=== PATIENT | male | born 1960 | race Two or more races ===

== ENCOUNTER → 2019-01-08 | Outpatient (CLI) | payer MEDICARE, MEDICAID ==
[~2019-01-08] MED LIST: INSU100I28 SQ
== END | disposition home or self-care (01) ==
LOC: CARD 09:09
PROVIDERS: ATTEND Psychiatry & Neurology Neurology
DX: I69.398 Other sequelae of cerebral infarction (principal)

== ENCOUNTER 2019-01-10 13:11 | Emergency (ER) | payer MEDICARE, MEDICAID ==
[~2019-01-10] VITALS: Ht 180.3 cm; Wt 118.0 kg
[2019-01-10] MEDS ORDERED: INSU100I28 SQ (13:19)
[2019-01-10 15:02] LABS: CLARITY URINE CLEAR (CLEAR); COLOR URINE YELLOW (YELLOW); KETONES URINE NEGATIVE (NEGATIVE); LEUKOCYTE ESTERASE URINE NEGATIVE (NEGATIVE); NITRITE URINE NEGATIVE (NEGATIVE); OCCULT BLOOD URINE 1+ (NEGATIVE); PROTEIN URINE 3+ (NEGATIVE); SPECIFIC GRAVITY URINE 1.011 (1.005-1.030); UROBILINOGEN URINE 0.2 E.U./dL (0.2-1.0)
[2019-01-10 15:31] LABS: BASOPHILS % 0.8 % (0.0-2.0); EOSINOPHILS % 2.8 % (0.0-5.0); HEMATOCRIT. 38.9 % (42.0-52.0); HEMOGLOBIN. 13.2 g/dL (14.0-18.0); LYMPHOCYTES % 25.7 % (20.0-50.0); MEAN CORPUSCULAR HEMOGLOBIN 29.9 pg (28.0-32.0); MEAN CORPUSCULAR VOLUME 88.5 fL (80.0-94.0); MEAN PLATELET VOLUME 9.2 fl (7.4-10.4); MONOCYTES % 6.9 % (2.0-8.0); NEUTROPHILS % 63.8 % (40.0-76.0); PLATELET 179 x1000/uL (130-400); RED CELL DISTRIBUTION WIDTH 13.9 % (11.6-14.6)
[2019-01-10 15:35] LABS: CHLORIDE 108 mEq/L (98-107); PROTHROMBIN TIME 10.3 sec (9.6-11.0)
[2019-01-10 19:17] LABS: BASOPHILS % 0.8 % (0.0-2.0); EOSINOPHILS % 3.1 % (0.0-5.0); HEMATOCRIT. 38.4 % (42.0-52.0); HEMOGLOBIN. 12.9 g/dL (14.0-18.0); LYMPHOCYTES % 25.5 % (20.0-50.0); MEAN CORPUSCULAR HEMOGLOBIN 29.5 pg (28.0-32.0); MEAN CORPUSCULAR VOLUME 87.6 fL (80.0-94.0); MEAN PLATELET VOLUME 9.1 fl (7.4-10.4); MONOCYTES % 7.4 % (2.0-8.0); NEUTROPHILS % 63.2 % (40.0-76.0); PLATELET 172 x1000/uL (130-400); RED BLOOD CELL COUNT 4.38 mill/uL (4.7-6.1); RED CELL DISTRIBUTION WIDTH 14.1 % (11.6-14.6)
[2019-01-10 19:20] LABS: CHLORIDE 109 mEq/L (98-107)
[2019-01-10 19:22] LABS: PROTHROMBIN TIME 10.5 sec (9.6-11.0)
[2019-01-11 10:00] VITALS: BP 163/98
== END 2019-01-11 10:23 | disposition home or self-care (01) ==
LOC: ER 13:11
DX: R19.7 Diarrhea, unspecified (principal); E11.65 Type 2 diabetes mellitus with hyperglycemia; I12.0 Hypertensive chronic kidney disease with stage 5 chronic kidney disease or end stage renal disease; E11.22 Type 2 diabetes mellitus with diabetic chronic kidney disease; N18.5 Chronic kidney disease, stage 5; Z86.73 Personal history of transient ischemic attack (TIA), and cerebral infarction without residual deficits; I25.10 Atherosclerotic heart disease of native coronary artery without angina pectoris
CPT/HCPCS: 36415; 74176; 81003; 99284

== ENCOUNTER 2020-03-16 11:45 | Inpatient (IN) | payer MEDICARE, MEDICAID ==
[~2020-03-16] VITALS: Ht 188 cm; Wt 117.9 kg
[~2020-03-16 11:45] MED LIST changes: +AMLO5TAB88 MT; +ASPI-986 MT; +ATOR-2 MT; +DULA1.5P SQ; +FESO4TAB MT; -INSU100I28 SQ
[2020-03-16] MEDS ORDERED: NITROGLYCERIN OINT 1GM/INCH UDPKT TD ONE (12:15)
[2020-03-16] MEDS ORDERED: MORPHINE SULFATE 2 MG/ML CPJ (NOT FOR IM USE) IV ONE (12:15)
[2020-03-16] MEDS ORDERED: CLONIDINE 0.1MG TABLET PO PRN (13:00)
[2020-03-16] MEDS ORDERED: MORPHINE SULFATE 2 MG/ML CPJ (NOT FOR IM USE) IV PRN (13:00)
[2020-03-16] MEDS ORDERED: ACETAMINOPHEN 325MG TABLET PO PRN (13:00)
[2020-03-16] MEDS ORDERED: ONDANSETRON HCL 4MG/2ML INJ IV PRN (13:00)
[2020-03-16 13:06] LABS: BASOPHILS % 1.2 % (0.0-2.0); EOSINOPHILS % 2.3 % (0.0-5.0); HEMATOCRIT. 31.3 % (42.0-52.0); HEMOGLOBIN. 10.2 g/dL (14.0-18.0); LYMPHOCYTES % 15.6 % (20.0-50.0); MEAN CORPUSCULAR HEMOGLOBIN 27.8 pg (28.0-32.0); MEAN CORPUSCULAR VOLUME 85.3 fL (80.0-94.0); MONOCYTES % 9.2 % (2.0-8.0); NEUTROPHILS % 71.7 % (40.0-76.0); PLATELET 303 x1000/uL (130-400); RED BLOOD CELL COUNT 3.66 mill/uL (4.7-6.1); RED CELL DISTRIBUTION WIDTH 14.8 % (11.6-14.6)
[2020-03-16 13:14] LABS: CHLORIDE 104 mEq/L (98-107)
[2020-03-16 13:17] LABS: INR 1.1; PROTHROMBIN TIME 11.7 sec (9.6-11.0)
[2020-03-16] MEDS ORDERED: DEXTROSE 50% WATER 50ML SYRINGE IV PRN (14:30)
[2020-03-16 15:00] VITALS: BP 122/72
[2020-03-16 15:34] LABS: CLARITY URINE CLEAR (CLEAR); COLOR URINE YELLOW (YELLOW); KETONES URINE NEGATIVE (NEGATIVE); LEUKOCYTE ESTERASE URINE NEGATIVE (NEGATIVE); NITRITE URINE NEGATIVE (NEGATIVE); OCCULT BLOOD URINE 1+ (NEGATIVE); PH URINE 5.5 (4.5-8.0); PROTEIN URINE 2+ (NEGATIVE); SPECIFIC GRAVITY URINE 1.012 (1.005-1.030)
[2020-03-16] MEDS: BLOOD SUGAR DIAGNOSTIC STRIP TEST SCH ×2 (16:34→20:45)
[2020-03-16] MEDS: APIXABAN 5 MG TABLET PO SCH (16:35)
[2020-03-16] MEDS: INSULIN LISPRO 100 UNITS/ML SUBCUT SCH ×2 (16:39→20:45)
[2020-03-16 20:00] VITALS: BP 106/62
[2020-03-17] VITALS: BP 124/72
[2020-03-17 04:00] VITALS: BP 113/66
[2020-03-17] MEDS: BLOOD SUGAR DIAGNOSTIC STRIP TEST SCH ×4 (06:21→20:41)
[2020-03-17] MEDS: INSULIN LISPRO 100 UNITS/ML SUBCUT SCH ×4 (06:21→20:41)
[2020-03-17 08:00] VITALS: BP 116/65
[2020-03-17] MEDS: APIXABAN 5 MG TABLET PO SCH ×2 (08:25→17:05)
[2020-03-17] MEDS: AMLODIPINE 5MG TABLET PO SCH (08:26)
[2020-03-17 08:31] LABS: BASOPHILS % 1.1 % (0.0-2.0); EOSINOPHILS % 2.4 % (0.0-5.0); HEMATOCRIT. 27.9 % (42.0-52.0); HEMOGLOBIN. 9.2 g/dL (14.0-18.0); LYMPHOCYTES % 15.3 % (20.0-50.0); MEAN CORPUSCULAR HEMOGLOBIN 28.1 pg (28.0-32.0); MEAN CORPUSCULAR VOLUME 85.3 fL (80.0-94.0); MEAN PLATELET VOLUME 8.2 fl (7.4-10.4); MONOCYTES % 9.8 % (2.0-8.0); NEUTROPHILS % 71.4 % (40.0-76.0); PLATELET 278 x1000/uL (130-400); RED BLOOD CELL COUNT 3.26 mill/uL (4.7-6.1); RED CELL DISTRIBUTION WIDTH 14.5 % (11.6-14.6)
[2020-03-17 08:52] LABS: CHLORIDE 103 mEq/L (98-107)
[2020-03-17 09:08] LABS: LDL CHOLESTEROL 108 mg/dL (5-100)
[2020-03-17 09:10] LABS: HDL CHOLESTEROL 33 mg/dL (40-59)
[2020-03-17 12:00] VITALS: BP 130/74
[2020-03-17 12:14] LABS: TOTAL IRON BINDING CAPACITY 200 ug/dL (250-450)
[2020-03-17 16:00] VITALS: BP 135/85
[2020-03-17 20:00] VITALS: BP 118/69
[2020-03-17] MEDS: EPOETIN ALFA-EPBX 10,000 UNIT/ML VIAL SUBCUT SCH (21:35)
[2020-03-18] VITALS: BP 114/84
[2020-03-18 04:00] VITALS: BP 137/83
[2020-03-18] MEDS: BLOOD SUGAR DIAGNOSTIC STRIP TEST SCH ×4 (06:19→20:44)
[2020-03-18] MEDS: INSULIN LISPRO 100 UNITS/ML SUBCUT SCH ×4 (06:19→20:44)
[2020-03-18 06:29] LABS: EOSINOPHILS % 1.9 % (0.0-5.0); HEMATOCRIT. 25.7 % (42.0-52.0); HEMOGLOBIN. 8.6 g/dL (14.0-18.0); LYMPHOCYTES % 13.9 % (20.0-50.0); MEAN CORPUSCULAR HEMOGLOBIN 28.1 pg (28.0-32.0); MEAN CORPUSCULAR VOLUME 83.6 fL (80.0-94.0); MONOCYTES % 11.4 % (2.0-8.0); NEUTROPHILS % 71.8 % (40.0-76.0); PLATELET 276 x1000/uL (130-400); RED BLOOD CELL COUNT 3.07 mill/uL (4.7-6.1); RED CELL DISTRIBUTION WIDTH 14.5 % (11.6-14.6)
[2020-03-18 08:00] VITALS: BP 119/76
[2020-03-18] MEDS: AMLODIPINE 5MG TABLET PO SCH (09:19)
[2020-03-18] MEDS: APIXABAN 5 MG TABLET PO SCH ×2 (09:19→17:56)
[2020-03-18 12:00] VITALS: BP 124/75
[2020-03-18 16:00] VITALS: BP 129/79
[2020-03-18] MEDS: DILTIAZEM HCL 120MG CAPSULE CD 24HR PO SCH (17:00)
[2020-03-18] MEDS ORDERED: LACTULOSE 20G/30ML UDC PO NR (18:15)
[2020-03-18 20:00] VITALS: BP 130/76
[2020-03-19] VITALS: BP 136/78
[2020-03-19 04:00] VITALS: BP 143/79
[2020-03-19] MEDS: BLOOD SUGAR DIAGNOSTIC STRIP TEST SCH ×4 (06:26→21:31)
[2020-03-19] MEDS: INSULIN LISPRO 100 UNITS/ML SUBCUT SCH ×4 (06:27→21:00)
[2020-03-19 06:55] LABS: BASOPHILS % 1.1 % (0.0-2.0); EOSINOPHILS % 0.7 % (0.0-5.0); HEMATOCRIT. 28.5 % (42.0-52.0); HEMOGLOBIN. 9.2 g/dL (14.0-18.0); MEAN CORPUSCULAR HEMOGLOBIN 27.7 pg (28.0-32.0); MEAN CORPUSCULAR VOLUME 85.4 fL (80.0-94.0); MONOCYTES % 11.4 % (2.0-8.0); NEUTROPHILS % 77.8 % (40.0-76.0); PLATELET 304 x1000/uL (130-400); RED BLOOD CELL COUNT 3.34 mill/uL (4.7-6.1); RED CELL DISTRIBUTION WIDTH 14.9 % (11.6-14.6)
[2020-03-19 08:00] VITALS: BP 147/84
[2020-03-19] MEDS: APIXABAN 5 MG TABLET PO SCH ×2 (09:08→17:41)
[2020-03-19] MEDS: DOCUSATE SODIUM 250MG CAPSULE PO SCH (09:08)
[2020-03-19] MEDS: DILTIAZEM HCL 120MG CAPSULE CD 24HR PO SCH (09:09)
[2020-03-19 12:00] VITALS: BP 134/76
[2020-03-19 16:00] VITALS: BP 139/72
[2020-03-19 20:00] VITALS: BP 117/72
[2020-03-19] MEDS: EPOETIN ALFA-EPBX 10,000 UNIT/ML VIAL SUBCUT SCH (21:32)
[2020-03-19 21:33] LABS: HEPATITIS B SURFACE AB < 3.1 mIU/mL
[2020-03-19 21:44] LABS: HEPATITIS B SURFACE ANTIGEN NEGATIVE
[2020-03-19 22:14] LABS: HEPATITIS A AB IGM NEGATIVE (NEGATIVE)
[2020-03-20] VITALS (7 sets, daily range): BP systolic 115–147; BP diastolic 68–79
[2020-03-20] MEDS: BLOOD SUGAR DIAGNOSTIC STRIP TEST SCH ×3 (06:22→16:45)
[2020-03-20] MEDS: INSULIN LISPRO 100 UNITS/ML SUBCUT SCH ×3 (06:22→17:15)
[2020-03-20 07:25] LABS: EOSINOPHILS % 0.9 % (0.0-5.0); HEMATOCRIT. 28.8 % (42.0-52.0); HEMOGLOBIN. 9.4 g/dL (14.0-18.0); LYMPHOCYTES % 10.5 % (20.0-50.0); MEAN CORPUSCULAR HEMOGLOBIN 27.8 pg (28.0-32.0); MEAN CORPUSCULAR VOLUME 84.9 fL (80.0-94.0); MEAN PLATELET VOLUME 8.3 fl (7.4-10.4); MONOCYTES % 11.1 % (2.0-8.0); NEUTROPHILS % 76.5 % (40.0-76.0); PLATELET 317 x1000/uL (130-400); RED BLOOD CELL COUNT 3.39 mill/uL (4.7-6.1); RED CELL DISTRIBUTION WIDTH 14.4 % (11.6-14.6)
[2020-03-20] MEDS: DOCUSATE SODIUM 250MG CAPSULE PO SCH (08:38)
[2020-03-20] MEDS: APIXABAN 5 MG TABLET PO SCH ×2 (08:38→17:49)
[2020-03-20] MEDS ORDERED: DILTIAZEM HCL 300MG CAPSULE SR 24HR PO SCH (09:00)
== END 2020-03-20 20:20 | DRG 313 ==
LOC: ER 11:45 → 5WST 12:41 → EDBEDREQTM 12:59 → EDBEDREQ 12:59 → ENRESERV 14:19
PROVIDERS: ADMIT Internal Medicine Nephrology; ATTEND Internal Medicine Nephrology
DX: R07.89 Other chest pain (principal); I82.402 Acute embolism and thrombosis of unspecified deep veins of left lower extremity; I69.354 Hemiplegia and hemiparesis following cerebral infarction affecting left non-dominant side; N18.5 Chronic kidney disease, stage 5; I12.9 Hypertensive chronic kidney disease with stage 1 through stage 4 chronic kidney disease, or unspecified chronic kidney disease; E11.22 Type 2 diabetes mellitus with diabetic chronic kidney disease; D64.9 Anemia, unspecified; E66.9 Obesity, unspecified; E78.5 Hyperlipidemia, unspecified; E87.70 Fluid overload, unspecified; I25.10 Atherosclerotic heart disease of native coronary artery without angina pectoris; D63.8 Anemia in other chronic diseases classified elsewhere; Z20.828 Contact with and (suspected) exposure to other viral communicable diseases; I27.20 Pulmonary hypertension, unspecified; I69.320 Aphasia following cerebral infarction; Z86.718 Personal history of other venous thrombosis and embolism; Z90.49 Acquired absence of other specified parts of digestive tract; Z91.15 Patient's noncompliance with renal dialysis; Z79.82 Long term (current) use of aspirin; Z79.01 Long term (current) use of anticoagulants; Z79.899 Other long term (current) drug therapy; Z68.33 Body mass index [BMI] 33.0-33.9, adult
CPT/HCPCS: 36415; 71045; 78582; 80048; 80053; 80061; 81003; 82270; 82607; 82728; 82746; 82962; 83036; 83540; 83550; 83880; 84484; 85025; 86705; 86706; 86709; 86803; 87340; 87426; 93005; 93306; 93970; 97110; 97162; 97530; 99285; A9558; J0885; J2270